=== PATIENT | female | born 1995 | race Caucasian/White ===

== ENCOUNTER 2017-01-20 08:45 | Outpatient (CLI) | payer OTHER | END 2017-01-20 08:46 | disposition home or self-care (01) | DX: Z00.00 Encounter for general adult medical examination without abnormal findings (principal) ==

== ENCOUNTER 2019-11-27 13:18 | Outpatient (CLI) | payer SELFPAY | END 2019-11-27 13:19 | disposition home or self-care (01) | LOC: COV 13:18 | PROVIDERS: ATTEND Family Medicine | DX: R05 Cough (principal); R50.9 Fever, unspecified; Z20.828 Contact with and (suspected) exposure to other viral communicable diseases | CPT/HCPCS: 81599 ==

== ENCOUNTER 2021-02-18 15:27 | Outpatient (CLI) | payer OTHER | END 2021-02-18 15:28 | disposition home or self-care (01) | LOC: COV 15:27 | PROVIDERS: ATTEND Family Medicine | DX: R50.9 Fever, unspecified (principal); M79.10 Myalgia, unspecified site; R53.83 Other fatigue; R19.7 Diarrhea, unspecified; R11.2 Nausea with vomiting, unspecified; Z20.822 Contact with and (suspected) exposure to COVID-19 ==

== ENCOUNTER 2021-03-04 13:42 | Outpatient (CLI) | payer OTHER ==
--- NOTE | 2021-03-05 14:22 | Ultrasound Report ---
LIMITED ULTRASOUND OF LEFT BREAST AND AXILLA: 03/04/2021 CLINICAL: Palpable left breast lump. No prior exams were available for comparison. Color flow and real-time ultrasound of the left breast 4 o'clock, and axilla regions were performed. Weir scale images of the real-time examination were reviewed. There is a 1.2 cm x 0.7 cm x 1.2 cm oval mass with a few angular margins in the left breast at 4 o'cl ock posterior depth 6 cm from the nipple. This oval mass is hypoechoic and oriented parallel to the chest wall. This correlates as palpated and with area of clinical concern. Color flow imaging demon strates that there is vascularity present. No significant abnormalities were seen sonographically in the left axilla. IMPRESSION: SUSPICIOUS OF MALIGNANCY The 1.2 cm x 0.7 cm x 1.2 cm oval mass in the left breast resembles a fibroadenoma and is at a low figueroa spicion for malignancy. The patient reports that this mass has been increasing in size. An ultrasou nd guided biopsy is recommended. Findings and recommendations were discussed with the patient during today's examination by Dr. Gallego on. This exam was interpreted at Station ID: [id number]. Electronically Signed By: Matthew Zarco M.D. aty/:03/04/2021 17:59:36 Ultrasound BI-RADS: 4a Low suspicion for malignancy BI-RADS CATEGORY: (4a) - Low Susp None [id number] Immediate follow-up LATERALITY: ()
== END 2021-03-04 13:43 | disposition home or self-care (01) ==
LOC: DI 13:42
PROVIDERS: ATTEND Family Medicine
DX: D24.2 Benign neoplasm of left breast (principal)

== ENCOUNTER 2021-03-11 08:36 | Outpatient (CLI) | payer OTHER ==
[~2021-03-11 08:36] MED LIST: BUFFERED LIDOCAINE 10 ML SYRINGE ONE; LIDOCAINE MPF 1%-EPI 1:200000 30 ML VIAL ONE
[2021-03-11] MEDS ORDERED: BUFFERED LIDOCAINE 10 ML SYRINGE IU ONE (10:59)
[2021-03-11] MEDS ORDERED: LIDOCAINE MPF 1%-EPI 1:200000 30 ML VIAL SUBQ ONE (12:00)
--- NOTE | 2021-03-12 05:56 | Mammography Report ---
UNILATERAL LEFT DIGITAL DIAGNOSTIC MAMMOGRAM 3D/2D: 03/11/2021 CLINICAL: Post left breast ultrasound biopsy, clip placment imaging. Comparison is made to exam dated: 03/04/2021 ultrasound - [facility]. The tissue o f left breast is extremely dense, which lowers the sensitivity of mammography. Biopsy clip is within the left breast at the biopsy site. IMPRESSION: Biopsy clip is at the biopsy site. This exam was interpreted at Station ID: [id number]. NOTE: For mammograms, a report in lay terms will be sent to the patient. Approximately 15% of breast malignancies will not be visualized mammographically. In the management of a palpable breast mass, a negative mammogram must not discourage biopsy of a clinically suspicious lesion. Electronically Signed By: Parish Beltran M.D. fx/:03/11/2021 17:41:27 ACR BI-RADS Category n/a PARENCHYMAL PATTERN: (VD) - The breast(s) demonstrate(s) extremely dense parenchyma, limiting the sen sitivity of mammography. BI-RADS CATEGORY: () - Unspecified - other recall n/a LATERALITY: (B)
--- NOTE | 2021-03-13 08:38 | Ultrasound Report ---
ULTRASOUND GUIDED BIOPSY LEFT BREAST WITH POST MAMMOGRAPHIC AND ULTRASOUND IMAGIN03/11/2021 CLINICAL: Left breast mass. PATIENT CONSENT: Risks (minor bleeding, infection, vasovagal reaction and repeat procedure), benefits and alternatives were explained to the patient and written informed consent was obtained. Correlation is made to exams dated: 03/11/2021 mammogram and 03/04/2021 ultrasound - [facility]. An ultrasound guided biopsy using real-time ultrasound was performed for the oval mass located in the left breast at 4 o'clock middle depth. This was described on the previous ultrasound report. The s kin was prepped in the usual manner. Local anesthetic was administered to the access site. The abno rmality was approached from the lateral aspect. A 14 gauge biopsy needle was placed adjacent to the abnormality under ultrasound guidance. Once the needle was documented to be in the correct location, three specimens were obtained using a BARD biopsy device. Post procedure mammographic and ultrasoun d imaging demonstrates the clip at the targeted area. The specimens were sent to the laboratory for pathological analysis. IMPRESSION: ULTRASOUND GUIDED BIOPSY BENIGN Ultrasound guided biopsy of the mass in the left breast middle depth was successful. 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 Pathology results are concordant with imaging fi ndings. Recommend clinical follow up for persistent or worsening symptoms, or development of any clinically s uspicious findings. This exam was interpreted at Station ID: [id number]. Parish Zarco M.D. fx,aty/:03/12/2021 17:40:04 BI-RADS CATEGORY: () - Unspecified - other recall n/a LATERALITY: (B)
== END 2021-03-11 08:37 | disposition home or self-care (01) ==
LOC: DI 08:36
PROVIDERS: ATTEND Family Medicine
DX: D24.2 Benign neoplasm of left breast (principal)
CPT/HCPCS: 19083

== ENCOUNTER 2021-10-30 16:01 | Outpatient (CLI) | payer OTHER ==
[2021-10-30 21:29] LABS: THYROID STIMULATING HORMONE 0.7 uIU/mL (0.34-5.60)
== END 2021-10-30 16:02 | disposition home or self-care (01) ==
LOC: LAB.N 16:01
PROVIDERS: ATTEND Family Medicine
DX: E01.0 Iodine-deficiency related diffuse (endemic) goiter (principal)
CPT/HCPCS: 36415; 84443

== ENCOUNTER 2021-11-04 12:58 | Outpatient (CLI) | payer OTHER ==
[2021-11-04 18:41] LABS: BASOPHILS % (AUTO) 0.4 %; EOSINOPHILS # (AUTO) 0.2 10^3/uL (0.0-0.7); EOSINOPHILS % (AUTO) 2.5 %; HCT - HEMATOCRIT 47.2 % (37.0-47.0); HGB - HEMOGLOBIN 15.4 g/dL (12.0-16.0); LYMPHOCYTES # (AUTO) 2.2 10^3/uL (1.5-3.5); LYMPHOCYTES % (AUTO) 28.9 %; MEAN CORPUSCULAR HEMOGLOBIN 29.7 pg (27.0-31.0); MEAN CORPUSCULAR HGB CONC 32.6 g/dL (32.0-36.0); MEAN CORPUSCULAR VOLUME 91.1 fL (81.0-99.0); MEAN PLATELET VOLUME 11.2 fL (7.9-10.8); MONOCYTES # (AUTO) 0.6 10^3/uL (0.0-1.0); NEUTROPHILS # (AUTO) 4.5 10^3/uL (1.5-6.6); NEUTROPHILS % (AUTO) 59.3 %; PLT - PLATELET COUNT 267 10^3/uL (130-450); RED BLOOD COUNT 5.18 10^6/uL (4.20-5.40); RED CELL DISTRIBUTION WIDTH 12.8 % (12.0-15.0); WHITE BLOOD COUNT 7.5 x10^3/uL (4.8-10.8)
[2021-11-04 19:57] LABS: % IRON SATURATION 24 % (20-50); IRON 125 ug/dL (28-170); TOTAL IRON BINDING CAPACITY 531 ug/dL (250-450); TRANSFERRIN 379 mg/dL (192-382)
== END 2021-11-04 12:59 | disposition home or self-care (01) ==
LOC: LAB.N 12:58
PROVIDERS: ATTEND Family Medicine
DX: L65.9 Nonscarring hair loss, unspecified (principal)
CPT/HCPCS: 36415; 82728; 83540; 84466; 85025

== ENCOUNTER 2022-10-23 12:07 | Outpatient (CLI) | payer MEDICAID ==
[2022-10-23 18:43] LABS: BASOPHILS % (AUTO) 0.6 %; EOSINOPHILS # (AUTO) 0.3 10^3/uL (0.0-0.7); EOSINOPHILS % (AUTO) 4.4 %; HCT - HEMATOCRIT 45.7 % (37.0-47.0); HGB - HEMOGLOBIN 14.6 g/dL (12.0-16.0); LYMPHOCYTES # (AUTO) 1.7 10^3/uL (1.5-3.5); MEAN CORPUSCULAR HEMOGLOBIN 30.2 pg (27.0-31.0); MEAN CORPUSCULAR HGB CONC 31.9 g/dL (32.0-36.0); MEAN CORPUSCULAR VOLUME 94.4 fL (81.0-99.0); MEAN PLATELET VOLUME 11.3 fL (7.9-10.8); MONOCYTES # (AUTO) 0.8 10^3/uL (0.0-1.0); MONOCYTES % (AUTO) 11.2 %; NEUTROPHILS % (AUTO) 58.5 %; PLT - PLATELET COUNT 283 10^3/uL (130-450); RED BLOOD COUNT 4.84 10^6/uL (4.20-5.40); RED CELL DISTRIBUTION WIDTH 13.1 % (12.0-15.0); WHITE BLOOD COUNT 6.8 x10^3/uL (4.8-10.8)
[2022-10-23 18:53] LABS: ALBUMIN 4.3 g/dL (3.2-5.5); ALBUMIN/GLOBULIN RATIO 1.1 (1.0-2.2); BILIRUBIN,TOTAL 0.5 mg/dL (0.2-1.0); CALCIUM 9.3 mg/dL (8.5-10.3); CREATININE 0.8 mg/dL (0.4-1.0); POTASSIUM 4.1 mmol/L (3.5-5.0); TOTAL PROTEIN 8.3 g/dL (6.7-8.2)
== END 2022-10-23 12:08 | disposition home or self-care (01) ==
LOC: LAB.N 12:07
PROVIDERS: ATTEND Physician Assistant
DX: R10.11 Right upper quadrant pain (principal)
CPT/HCPCS: 36415; 80053; 85025

== ENCOUNTER 2022-11-04 16:49 | Outpatient (CLI) | payer MEDICAID ==
--- NOTE | 2022-11-05 09:51 | Ultrasound Report ---
PROCEDURE: Abdomen Limited INDICATIONS: RUQ ABD PAIN TECHNIQUE: Real-time focused scanning was performed of the abdomen, with image documentation. COMPARISON: PROCEDURE: Abdomen Limited INDICATIONS: RUQ ABD PAIN TECHNIQUE: Real-time scanning was performed of the abdominal and retroperitoneal organs, with image documentatio n. COMPARISON: None. FINDINGS: Liver: Increased echogenicity with loss of portal wall echogenicity in the right hepatic lobe, consis tent with steatosis. Gallbladder: Contracted. No stones. Biliary ducts: Intrahepatic bile ducts are non-dilated. Extrahepatic bile duct caliber measures 6 m m. Normal is 6-7 mm or less in diameter, or 10 mm or less post-cholecystectomy. Pancreas: Visualized portions of the pancreas are sonographically normal. Right kidney: Normal in size and echotexture. Right kidney measures 10.5 cm long. No hydronephrosis or nephrolithiasis. No solid masses. Aorta: Visualized aorta is normal in caliber at less than 3 cm. IVC: Intrahepatic inferior vena cava is patent. Miscellaneous: No free abdominal fluid. IMPRESSION: 1.The gallbladder is contracted, without stones. 2.Hepatic steatosis. FINDINGS: IMPRESSION: Reviewed by: Joesph Ladd on 11/05/2022 9:50 AM PST Approved by: Joesph Ladd on 11/05/2022 9:50 AM PST Station ID: [id number]
== END 2022-11-04 16:50 | disposition home or self-care (01) ==
LOC: DI 16:49
PROVIDERS: ATTEND Physician Assistant
DX: K76.0 Fatty (change of) liver, not elsewhere classified (principal); R10.11 Right upper quadrant pain

== ENCOUNTER 2023-01-13 12:31 | Day surgery (SDC) | payer MEDICAID ==
[2023-01-13] MEDS ORDERED: LACTATED RINGERS 1,000 ML IV ONE (12:45)
[2023-01-13] MEDS ORDERED: CEFAZOLIN 2G/50ML 0.9% NS 2 GM/50 ML BAG IV ONE (12:50)
[2023-01-13] MEDS ORDERED: BUPIVACAINE 0.25% PF 30 ML VIAL ONE (13:26)
[2023-01-13] MEDS ORDERED: LIDOCAINE-PF 2% 10 ML AMP SUBQ ONE (13:31)
[2023-01-13] MEDS ORDERED: fentaNYL 100 MCG/2 ML VIAL ONE ×3 (13:31→16:38)
[2023-01-13] MEDS ORDERED: MIDAZOLAM 2 MG/2 ML VIAL ONE (13:31)
[2023-01-13] MEDS ORDERED: PROPOFOL 200 MG/20 ML VIAL IVP ONE ×2 (13:31→16:09)
[2023-01-13] MEDS ORDERED: ROCURONIUM 50 MG/5 ML VIAL ONE ×2 (13:32→15:25)
[2023-01-13 13:43] LABS: HCG UR QUAL NEGATIVE
--- NOTE | 2023-01-13 13:45 | ANESTHESIA ---
Pre-Anesthesia VS, & Labs - Diagnosis chronic cholecytitis - Procedure laparoscopic cholecystectomy Vital Signs: Temp Pulse Resp BP Pulse Ox O2 Flow Rate 36.6 C 97 16 146/95 H 98 0 01/13/23 12:54 01/13/23 12:54 01/13/23 12:54 01/13/23 12:54 01/13/23 12:54 01/13/23 12:54 Height: 5 ft 6 in Weight (kg): 83 kg Body Mass Index: 29.5 BMI Classification: Overweight - NPO >8 hours - Is Patient ?: No - Lab Results Lab results reviewed: Yes Home Medications and Allergies Home Medications: Ambulatory Orders Albuterol Sulf [Ventolin Hfa Inhaler] 1 - 2 puffs INH Q4HR PRN 12/30/22 Biotin 1,000 mcg PO DAILY 12/30/22 Multivitamin 1 each PO DAILY 12/30/22 Albuterol Sulf [Ventolin Hfa Inhaler] 1 - 2 puffs INH Q4HR PRN 12/30/22 Biotin 1,000 mcg PO DAILY 12/30/22 Multivitamin 1 each PO DAILY 12/30/22 Allergies/Adverse Reactions: Allergies Allergy/AdvReac Type Severity Reaction Status Date / Time Penicillins Allergy Unknown Nausea Verified 01/13/23 13:02 Anes History & Medical History - Medical History Cardiovascular: reports: Other Pulmonary: reports: Asthma Gastrointestinal: reports: Cholelithiasis Urinary: reports: None Musculoskeletal: reports: None Endocrine/Autoimmune: reports: None Skin: reports: None Smoking Status: Never smoker - Surgical History Eyes Ears Nose Throat (EENT): reports: Tonsil/Adenoidectomy Orthopedic: reports: Other Exam General: Alert, Oriented x3, Cooperative Dental: WNL Mouth Openin Fingerbreadth Neck Mobility: Normal Mallampati classification: II Thyromental Distance: 4-6 cm Plan Anesthesia Type: General Consent for Procedure(s) Verified and Reviewed: Yes Code Status: Attempt Resuscitation ASA classification: 2-Mild systemic disease Is this case an emergency?: No
[2023-01-13] MEDS ORDERED: ONDANSETRON 4 MG/2 ML VIAL IVP PRN ×2 (13:50→16:20)
[2023-01-13] MEDS ORDERED: NALOXONE 0.4 MG/ML VIAL IVP PRN (13:50)
[2023-01-13] MEDS ORDERED: HYDROmorphone 0.5 MG/0.5 ML SYRINGE IVP PRN ×2 (13:50→16:20)
[2023-01-13] MEDS ORDERED: ATROPINE ABBOJECT 1 MG/10 ML SYRINGE IVP PRN (13:50)
[2023-01-13] MEDS ORDERED: METOCLOPRAMIDE 10 MG/2 ML VIAL IVP PRN (13:50)
[2023-01-13] MEDS ORDERED: ePHEDrine 50 MG/ML VIAL IVP PRN (13:50)
[2023-01-13] MEDS ORDERED: MORPHINE 2 MG/ML CARPUJECT IVP PRN (13:50)
[2023-01-13] MEDS ORDERED: LACTATED RINGERS 1,000 ML IV SCH (14:00)
--- NOTE | 2023-01-13 14:44 | HISTORY & PHYSICAL EXAMINATION ---
Chief Complaint - Chief Complaint Chief Complaint: upper abdominal pain History of Present Illness - History Obtained From Records Reviewed: yes History obtained from: pt Exam Limitations: none - History of Present Illness HPI Comment/Other: daiy right upper quadrant pain for nearly 4 months. not improving History - Past Medical History Cardiovascular: reports: Other Respiratory: reports: Asthma Endocrine/Autoimmune: reports: None GI: reports: Cholelithiasis : reports: None HEENT: reports: None Psych: reports: Depression, Anxiety, Post traumatic stress disorder Musculoskeletal: reports: None Derm: reports: None MRSA Hx?: No - Past Surgical History Ortho: reports: Other HEENT: reports: Tonsil/Adenoidectomy Meds/Allgy - Home Medications Home Medications: Ambulatory Orders Medication Instructions Recorded Confirmed Albuterol Sulf [Ventolin Hfa 1 - 2 puffs INH Q4HR PRN 12/30/22 12/30/22 Inhaler] Biotin 1,000 mcg PO DAILY 12/30/22 01/13/23 Multivitamin 1 each PO DAILY 12/30/22 01/13/23 - Allergies Allergies/Adverse Reactions: Allergies Allergy/AdvReac Type Severity Reaction Status Date / Time Penicillins Allergy Unknown Nausea Verified 01/13/23 13:02 Review of Systems - Other Findings Other Findings: 10 pt ros as above otherwise unremarkable Exam - Vital Signs Reviewed Vital Signs: Yes Vital Signs: Vital Signs x48h Temp Pulse Resp BP Pulse Ox O2 Flow Rate 01/13/23 12:54 36.6 C 97 16 146/95 H 98 0 - Physical Exam General Appearance: positive: No acute distress, Alert Eyes Bilateral: positive: PERRL, EOMI, No scleral icterus ENT: positive: No signs of dehydration Neck: positive: No JVD, Trachea midline Respiratory: positive: Breath sounds nml Cardiovascular: positive: Regular rate & rhythm Neurologic/Psychiatric: positive: Oriented x3 Conclusion/Plan - Problem List (1) Chronic cholecystitis Conclusion/Plan: plan dale halina. talya held and consent obtained - Lab Results Lab results reviewed: Yes
[2023-01-13] MEDS ORDERED: ONDANSETRON 4 MG/2 ML VIAL ONE ×2 (15:09→16:39)
[2023-01-13] MEDS ORDERED: DEXAMETHASONE 4 MG/ML VIAL ONE (15:09)
[2023-01-13] MEDS ORDERED: BUPIVACAINE 0.25% PF 30 ML VIAL SUBQ ONE (15:17)
[2023-01-13] MEDS ORDERED: ACETAMINOPHEN 1,000 MG/100 ML 1,000 MG/100 ML BAG IV ONE (15:19)
[2023-01-13] MEDS ORDERED: KETOROLAC 30 MG/ML VIAL ONE (15:55)
[2023-01-13] MEDS ORDERED: SUGAMMADEX 200 MG/2 ML VIAL IVP ONE (16:00)
[2023-01-13] MEDS ORDERED: HYDROcod/ACETAM 5/325 MG TABLET PO PRN (16:20)
[2023-01-13] MEDS ORDERED: LACTATED RINGERS 400 ML IV ONE (16:27)
--- NOTE | 2023-01-13 16:31 | OPERATIVE REPORT ---
Operative Report - General Procedure Date: 01/13/23 Planned Procedure: lap halina Pre-Op Diagnosis: chronic cholecystitis Procedure Performed: lap halina Post Op Diagnosis: chronic cholecystitis - Procedure Note Primary Surgeon: kasandra george Anesthesia Technique: General ET tube, Local Pathology: gallbladder Estimated Blood Loss (mL): 10 Drain/Tube Type: Other (none) Indications: chronic cholecystitis Findings: enlarged gallbladder encased in omentum Complications: none - Other Other Information/Narrative: The patient was properly identified, brought to the operating room and placed in supine position. Sequential compression devices were placed. General endotracheal anesthesia was induced. The patient was prepped and draped in a sterile fashion and given preoperative antibiotics. Local anesthetic was given to incision areas. An incision was made in the periumbilical area. Dissection proceeded down to fascia. The fascia was incised lifted upwards and abdomen entered with a Veress needle. CO2 was insufflated to a pressure of 15. An 11 mm trocar followed by a 30 degree scope was placed. There was no evidence of injury from Veress needle or trocar placement. Under direct vision 2 5 mm trochars were placed in the right upper quadrant and an 11 mm trocar was placed in the epigastrium. Body of the gallbladder was retracted anterior. Lateral attachments were partially taken down further mobilizing the gallbladder more anterior and away from the duodenum. The infundibulum of the gallbladder was then retracted right lateral and caudad. With minimal use of cautery a large bare cystic plate area or window was carefully created. The cystic duct was inspected from right lateral and left lateral positions. [] The cystic duct was then clipped at the gallbladder and 3 times slightly proximal and sharply divided. The cystic artery was clipped at the gallbladder and then 2 times slightly proximal and sharply divided. The gallbladder was mobilized off from the bed of the liver with hook cautery. The gallbladder was placed in Endo Catch bag and brought out through the epigastric trocar site. Hemostasis was assured. Trochars were removed under direct vision. Fascia at the larger trocar sites was closed with [id number] are running 0 Vicryl suture. Subcutaneous tissue was irrigated and skin closed with interrupted 4-0 Monocryl. Dressings were applied. Patient tolerated the procedure well was awakened and brought to recovery in good condition.
[2023-01-13] MEDS: fentaNYL 100 MCG/2 ML VIAL IVP PRN ×2 (16:39→16:45)
[2023-01-13] MEDS ORDERED: HYDROmorphone 1 MG/ML CARPUJECT ONE (16:45)
[2023-01-13 18:54] VITALS: BP 127/73
--- NOTE | 2023-01-13 21:51 | ANESTHESIA POST OP EVALUATION ---
Anesthesia Post Eval - Post Anesthesia Eval Vitals: Last Vital Signs Temp 36.6 C 01/13/23 18:30 Pulse 107 H 01/13/23 18:30 Resp 14 01/13/23 18:30 BP 127/73 01/13/23 18:30 Pulse Ox 98 01/13/23 18:30 O2 Flow Rate 98 01/13/23 18:00 CV Function Including HR & BP: Stable Pain Control: Satisfactory Nausea & Vomiting: Negative Mental Status: Baseline Respiratory Status: Airway Patent Hydration Status: Satisfactory Anesthesia Complications: None
== END 2023-01-13 18:50 | disposition home or self-care (01) ==
LOC: SDS 12:31 → MS3 16:48 → SDS 18:50
PROVIDERS: ATTEND Surgery
PROC: 0FT44ZZ Resection of Gallbladder, Percutaneous Endoscopic Approach (ICD-10-PCS; principal; 2023-01-13 13:45)
DX: K81.1 Chronic cholecystitis (principal); J45.909 Unspecified asthma, uncomplicated; Z32.02 Encounter for pregnancy test, result negative
CPT/HCPCS: 47562; 81025; J0131; J0690; J1170; J7120

== ENCOUNTER 2023-03-22 09:30 | Outpatient (CLI) | payer MEDICAID, OTHER ==
[2023-03-22 12:00] LABS: BASOPHILS % (AUTO) 1.3 %; EOSINOPHILS % (AUTO) 0.6 %; HCT - HEMATOCRIT 41.7 % (37.0-47.0); HGB - HEMOGLOBIN 13.6 g/dL (12.0-16.0); LYMPHOCYTES % (AUTO) 79.9 %; MEAN CORPUSCULAR HEMOGLOBIN 30.1 pg (27.0-31.0); MEAN CORPUSCULAR HGB CONC 32.6 g/dL (32.0-36.0); MEAN CORPUSCULAR VOLUME 92.3 fL (81.0-99.0); MEAN PLATELET VOLUME 11.1 fL (7.9-10.8); NEUTROPHILS % (AUTO) 10.1 %; PLT - PLATELET COUNT 175 10^3/uL (130-450); RED BLOOD COUNT 4.52 10^6/uL (4.20-5.40); RED CELL DISTRIBUTION WIDTH 13.3 % (12.0-15.0)
[2023-03-22 12:02] LABS: INFECTIOUS MONONUCLEOSIS POSITIVE (Negative)
[2023-03-22 12:03] LABS: ABNORMAL LYMPHS % (MANUAL) 0 %; BAND NEUTROPHILS % (MANUAL) 0 %
[2023-03-22 12:26] LABS: DIFFERENTIAL COMMENT MANUAL DIFFERENTIAL; EOSINOPHILS # (MANUAL) 0.1 10^3/uL (0-0.7); LYMPHOCYTES # (MANUAL) 4.8 10^3/uL (1.5-3.5); LYMPHOCYTES % (MANUAL) 53 %; MONOCYTES # (MANUAL) 1.3 10^3/uL (0.0-1.0); NEUTROPHILS # (MANUAL) 0.8 10^3/uL (1.5-6.6); PLATELET ESTIMATE, MANUAL NORMAL (130-450,000) (NORMAL); PLATELET MORPHOLOGY NORMAL APPEARANCE (NORMAL); RBC MORPHOLOGY (MULTIPLE) NORMAL APPEARANCE (NORMAL); REACTIVE LYMPHS % (MANUAL) 15 %
[2023-03-22 12:30] LABS: ALBUMIN 3.9 g/dL (3.2-5.5); BILIRUBIN,TOTAL 0.4 mg/dL (0.2-1.0); CALCIUM 8.7 mg/dL (8.5-10.3); CREATININE 0.6 mg/dL (0.4-1.0); CRP - C-REACTIVE PROTEIN 2.9 mg/dL (0-1.0); TOTAL PROTEIN 7.7 g/dL (6.7-8.2)
== END 2023-03-22 09:45 | disposition home or self-care (01) ==
LOC: LAB.N 09:30
PROVIDERS: ATTEND Registered Nurse
DX: R10.9 Unspecified abdominal pain (principal); R07.0 Pain in throat; I88.9 Nonspecific lymphadenitis, unspecified
CPT/HCPCS: 36415; 80053; 83690; 85025; 86140; 86308

== ENCOUNTER 2023-03-24 15:00 | Outpatient (CLI) | payer OTHER ==
[2023-03-24 17:57] LABS: BASOPHILS % (AUTO) 0.4 %; EOSINOPHILS % (AUTO) 0.6 %; HCT - HEMATOCRIT 42.6 % (37.0-47.0); HGB - HEMOGLOBIN 13.9 g/dL (12.0-16.0); LYMPHOCYTES % (AUTO) 81.4 %; MEAN CORPUSCULAR HEMOGLOBIN 29.8 pg (27.0-31.0); MEAN CORPUSCULAR HGB CONC 32.6 g/dL (32.0-36.0); MEAN CORPUSCULAR VOLUME 91.4 fL (81.0-99.0); MEAN PLATELET VOLUME 11.3 fL (7.9-10.8); MONOCYTES % (AUTO) 7.6 %; NEUTROPHILS % (AUTO) 9.6 %; PLT - PLATELET COUNT 209 10^3/uL (130-450); RED BLOOD COUNT 4.66 10^6/uL (4.20-5.40); RED CELL DISTRIBUTION WIDTH 13.6 % (12.0-15.0); WHITE BLOOD COUNT 8.5 x10^3/uL (4.8-10.8)
[2023-03-24 18:02] LABS: ABNORMAL LYMPHS % (MANUAL) 0 %; BAND NEUTROPHILS % (MANUAL) 0 %
[2023-03-24 18:09] LABS: ALBUMIN 4.1 g/dL (3.2-5.5); BILIRUBIN,TOTAL 0.7 mg/dL (0.2-1.0); CALCIUM 8.8 mg/dL (8.5-10.3); CREATININE 0.7 mg/dL (0.4-1.0); CRP - C-REACTIVE PROTEIN 1.1 mg/dL (0-1.0); POTASSIUM 3.8 mmol/L (3.5-5.0); TOTAL PROTEIN 8.4 g/dL (6.7-8.2)
[2023-03-24 19:42] LABS: EOSINOPHILS # (MANUAL) 0.2 10^3/uL (0-0.7); LYMPHOCYTES # (MANUAL) 6.9 10^3/uL (1.5-3.5); LYMPHOCYTES % (MANUAL) 30 %; MONOCYTES # (MANUAL) 0.4 10^3/uL (0.0-1.0); REACTIVE LYMPHS % (MANUAL) 51 %
[2023-03-24 19:43] LABS: DIFFERENTIAL COMMENT MANUAL DIFFERENTIAL; PLATELET ESTIMATE, MANUAL NORMAL (130-450,000) (NORMAL); PLATELET MORPHOLOGY NORMAL APPEARANCE (NORMAL); RBC MORPHOLOGY (MULTIPLE) NORMAL APPEARANCE (NORMAL)
== END 2023-03-24 15:15 | disposition home or self-care (01) ==
LOC: LAB.N 15:00
PROVIDERS: ATTEND Registered Nurse
DX: R79.89 Other specified abnormal findings of blood chemistry (principal); B27.99 Infectious mononucleosis, unspecified with other complication
CPT/HCPCS: 36415; 80053; 83690; 85025; 86140